=== PATIENT | female | born 1985 | race Caucasian/White ===

== ENCOUNTER 2017-01-19 15:03 | Emergency (ER) | payer OTHER ==
[~2017-01-19] VITALS: Ht 167.6 cm; Wt 61.2 kg
[~2017-01-19 15:03] MED LIST: AMOXICILLIN 50500 MG PO; APAP500 PO; FLEXERIL PO; GABAPENTIN 100100 MG PO; HYDROCHLOROTH12.5 M1 PO; IBUPROFEN 800800 M1 PO; IBUPROFEN 800800 MG PO; LEXAPRO 10 MG T10 M1 PO; LEXAPRO20 MG PO; MULTIVITAMINS1 EAC7 PO; NAPROSYN500 MG PO; NORCO 5-325 TA1 EACH PO; PENICILLIN VK250 MG PO; PENICILLIN VK500 M1 PO; PERCOCET 5-3251 EACH PO; PRINIVIL20 M1 PO; TRAMADOL 50 MG50 MG PO; VEETIDS 250MG250 M1 PO; VICODIN 5-3001 EACH PO
[2017-01-19 15:25] VITALS: BP 139/96
[2017-01-19] MEDS ORDERED: PENICILLIN V P500 MG PO (15:29)
[2017-01-19] MEDS ORDERED: NORCO 5-325 TA1 EACH PO (15:42)
== END 2017-01-19 15:58 | disposition home or self-care (01) ==
LOC: ER 15:03
DX: K08.89 Other specified disorders of teeth and supporting structures (principal); I10 Essential (primary) hypertension; F32.9 Major depressive disorder, single episode, unspecified; F17.210 Nicotine dependence, cigarettes, uncomplicated